=== PATIENT | female | born 1985 | race Caucasian/White ===

== ENCOUNTER → 2018-10-20 | Outpatient (CLI) | payer OTHER ==
--- NOTE | 2018-10-20 17:58 | 2DMMODE ---
[place] [address] 2 D/M-MODE ECHOCARDIOGRAM Name: JONN SPRAGUE Room: [facility]#: [id number] Admission: 10/20/18 Attend Phys: Eric Kerns, Discharge: Date of : 83 Date of Service: 10/20/18 1757 Report #: [id number] THIS REPORT FOR: //name// APPROVED REPORT Study performed: 10/20/2018 13:09:09 EXAM: Comprehensive 2D, Doppler, and color-flow Echocardiogram Patient Location: Out-Patient Status: routine BSA: 1.69 HR: 68 bpm BP: 118/68 mmHg Other Information Study Quality: Good Technically limited study due to Breast Implants. Indications Tachycardia 2D Dimensions IVSd: 8.17 (7-11mm) LVOT Diam: 20.25 (18-24mm) LVDd: 40.07 mm PWd: 7.89 (7-11mm) Ascending Ao: 23.85 (22-36mm) LVDs: 26.09 (25-40mm) Aortic Root: 28.43 mm Volumes Left Atrial Volume (Systole) LA ESV Index: 7.00 mL/m2 Aortic Valve AoV Peak Jordan.: 0.94 m/s AO Peak Gr.: 3.50 mmHg LVOT Max P.51 mmHg AO Mean Gr.: 1.80 mmHg LVOT Mean P.48 mmHg LVOT Max V: 0.94 m/s AO V2 VTI: 15.87 cm LVOT Mean V: 0.54 m/s DARIELA (VTI): 3.42 cm2 LVOT V1 VTI: 16.85 cm Mitral Valve E/A Ratio: 1.71 MV Decel. Time: 130.53 [place] [address] 2 D/M-MODE ECHOCARDIOGRAM Name: JONN SPRAGUE Room: [facility]#: [id number] Admission: 10/20/18 Attend Phys: Eric Kerns, Discharge: Date of : 83 Date of Service: 10/20/18 1757 Report #: [id number] MV E Max Jordan.: 0.58 m/s MV PHT: 37.85 ms MVA (PHT): 5.81 cm2 TDI E/Lateral E': 4.14 E/Medial E': 4.14 Medial E' Jordan.: 0.14 m/s Lateral E' Jordan.: 0.14 m/s Pulmonary Valve PV Peak Jordan.: 0.74 m/s PV Peak Gr.: 2.21 mmHg Left Ventricle The left ventricle is normal size. There is normal LV segmental wall motion. There is normal left ventricular wall thickness. Left ventricular systolic function is normal. LVEF is 55-60%. The left ventricular diastolic function is normal. Right Ventricle The right ventricle is normal size. The right ventricular systolic function is normal. Atria The left atrium size is normal. The right atrium size is normal. Aortic Valve The aortic valve is normal in structure. No aortic regurgitation is present. There is no aortic valvular stenosis. Mitral Valve The mitral valve is normal in structure. There is no mitral valve regurgitation noted. No evidence of mitral valve stenosis. Tricuspid Valve The tricuspid valve is normal in structure. There is no tricuspid valve regurgitation noted. Pulmonic Valve The pulmonary valve is normal in structure. Mild pulmonic regurgitation. Great Vessels The aortic root is normal in size. IVC is normal in size and collapses >50% [place] [address] 2 D/M-MODE ECHOCARDIOGRAM Name: JONN SPRAGUE Room: [facility]#: [id number] Admission: 10/20/18 Attend Phys: Eric Kerns, Discharge: Date of : 83 Date of Service: 10/20/18 1757 Report #: [id number] Pericardium There is no pericardial effusion. <Conclusion> The left ventricle is normal size. There is normal left ventricular wall thickness. Left ventricular systolic function is normal. LVEF is 55-60%. The left ventricular diastolic function is normal. Mild pulmonic regurgitation. IVC is normal in size and collapses >50% with inspiration. <ELECTRONICALLY SIGNED> By: Shivam Nicolas MD, FACC 10/20/181756 56 56 Shivam Nicolas MD, FACC /INF
== END ==
LOC: M.CRD 12:34
DX: I37.1 Nonrheumatic pulmonary valve insufficiency (principal); I47.1 Supraventricular tachycardia

== ENCOUNTER → 2019-11-20 | Outpatient (CLI) | payer OTHER | LOC: M.RAD 17:58 | DX: R10.9 Unspecified abdominal pain (principal); K59.00 Constipation, unspecified ==

== ENCOUNTER → 2020-07-13 | Outpatient (CLI) | payer OTHER | LOC: M.LAB 15:08 | PROVIDERS: ATTEND Registered Nurse | DX: I47.1 Supraventricular tachycardia (principal) ==

== ENCOUNTER → 2020-09-21 | Outpatient (CLI) | payer OTHER ==
--- NOTE | 2020-10-16 19:45 | SLEEP ---
[address] [address] SLEEP STUDY REPORT Name: JONN SPRAGUE JALEESADINA Room: [facility]#: [id number] Admission: 09/21/20 Attend Phys: Serge Ortiz DO Discharge: Date of : 83 Report #: [id number] THIS REPORT FOR: cc: Aura Gabriel Maggie M. DO ~ Duke Clemons MD This study has been reviewed in its entirety by a board certified sleep specialist DATE OF SERVICE: 09/21/2020 SLEEP STUDY INDICATION FOR SLEEP STUDY: Daytime sleepiness/hypertension. INTERPRETATION: Total duration of the study is 375 minutes, out of which she was asleep for 331 minutes with an overall sleep efficiency of 88%. Sleep onset initially occurred around half an hour after lying down in bed and REM onset was 48 minutes after sleep onset. N1 sleep duration was 3%, N2 duration was 48%, N3 duration was 22% and REM duration was 27%. We did record occasional sleep related respiratory events. These included 1 central apnea, 1 hypopnea and 23 respiratory effort related arousals. There are no obstructive apneas recorded. There are also no mixed apneas. Overall, apnea-hypopnea index is normal at 0.4. Respiratory disturbance index is also normal at 4.5. Body position data indicates the patient was observed asleep in the supine position for 129 minutes. The rest of the time, the patient was in other positions. Mean heart rate of 77. Periodic limb movement index was normal at 6.7. Arousal index is mildly elevated to 17.6. There is mild sleep fragmentation. O2 saturation is adequately maintained during the sleep study. IMPRESSION: Overall this is an unremarkable sleep study. Sleep apnea was not detected during the sleep study. O2 saturation is also adequately maintained during the sleep study. It is noted that the patient was awake for the first half hour of this sleep study. RECOMMENDATIONS: Clinical correlation is advised for evaluation of the patient's sleep complaints, which is noted that there is a delay in sleep onset. It may be due to the fact that the patient was unfamiliar surroundings. However, if the patient is pending an extensive period of time in bed, then this can also lead to this finding. Clinical correlation is advised. Recommend avoiding driving or other activities [place] [address] SLEEP STUDY REPORT Name: JONN SPRAGUE Room: [facility]#: [id number] Admission: 09/21/20 Attend Phys: Serge Ortiz DO Discharge: Date of : 83 Report #: [id number] This entire sleep study was reviewed by board certified sleep physician. <ELECTRONICALLY SIGNED> By: Duke Clemons MD 10/16/20 1945 1926 [id number] alma Barahona
== END ==
LOC: M.SLEEPLAB 20:00
PROVIDERS: ATTEND Family Medicine
DX: R53.82 Chronic fatigue, unspecified (principal); R40.0 Somnolence